=== PATIENT | female | born 1980 | race Caucasian/White ===

== ENCOUNTER 2020-10-28 12:22 | Outpatient (CLI) | payer BC, SELFPAY ==
--- NOTE | 2020-10-28 16:29 | P.PCNPFT_ITS ---
PFT Interpretation This is a methacholine challenge test. The test was performed and interpreted in accordance with the 1999 [place] [employer] guidelines. The test was performed with increasing doses of nebulized methacholine using a 2 minute tidal breathing protocol. The best post-methacholine FEV1 values were used to calculate the change from the post diluent FEV1. Findings: Baseline FEV1 2.09 L, 76% predicted. Post diluent FEV1 2.02 L Post 0.025 mg/ml methacholine FEV1 1.99 L, decreased 2% Post 0.25 mg/mL methacholine FEV1 1.96 L, decreased 3% Post 2.5 mg/mL methacholine FEV1 1.76 L, decreased 13% Post 10 mg/mL methacholine FEV1 1.48 L, decreased 27% Post albuterol nebulization FEV1 2.13 L Impression: The PC20 is 4.94 mg/ml which is categorized as borderline bronchial hyperresponsiveness. There are no prior methacholine challenge studies for comparison
== END 2020-10-28 12:23 | disposition home or self-care (01) ==
PROVIDERS: PCP Family Medicine; Visit Provider Nurse Practitioner
DX: J45.909 Unspecified asthma, uncomplicated (principal)
CPT/HCPCS: 94070; J7674